=== PATIENT | female | born 1970 | race Caucasian/White ===

== ENCOUNTER 2017-11-02 14:16 | Inpatient (IN) | payer BC ==
[~2017-11-02] VITALS: Ht 156.2 cm; Wt 89.0 kg
[2017-11-02] MEDS ORDERED: SODIUM CHLORIDE 0.9% 1000ML 1,000 ML IV ONE ×2 (14:25→22:22)
[2017-11-02 14:53] LABS: BASOPHILS % (AUTO) 0.2 % (0.0-5.0); EOSINOPHILS % (AUTO) 0.1 % (0.0-8.0); LYMPHOCYTES % (AUTO) 6.1 % (21.0-51.0); MEAN CORPUSCULAR HEMOGLOBIN 26.7 pg (27.0-33.0); MEAN CORPUSCULAR HGB CONC 33.8 g/dL (32.0-36.0); MEAN CORPUSCULAR VOLUME 79.1 fL (79-99); MONOCYTES % (AUTO) 0.4 % (3.0-13.0); NEUTROPHILS % (AUTO) 93.2 % (40.0-77.0); PLATELET COUNT (AUTO) 264 K/uL (130-400); RED BLOOD CELL COUNT(AUTO) 5.18 MIL/uL (4.00-5.50); RED CELL DISTRIBUTION WIDTH 15.8 % (11.0-15.5); WHITE BLOOD COUNT (AUTO) 8.3 K/uL (4.8-10.8)
[2017-11-02] MEDS ORDERED: KETOROLAC TROMETHAMINE 30MG/ML ONE ×2 (15:00→20:13)
[2017-11-02] MEDS ORDERED: ONDANSETRON HCL MDV 20ML 2 MG/ML VIAL ONE (15:00)
[2017-11-02 15:05] LABS: INR 0.95 (0.85-1.15); PARTIAL THROMBOPLASTIN TIME 28.1 SEC (26.3-35.5)
[2017-11-02 15:09] LABS: CARBON DIOXIDE 28 mmol/L (21-32); CHLORIDE 101 mmol/L (101-111); CREATININE 0.8 mg/dL (0.5-1.5); GLOMERULAR FILTR. RATE CALC 82 mL/min (>60); GLUCOSE,RANDOM 137 mg/dL (70-105); POTASSIUM 3.4 mmol/L (3.5-5.1); SODIUM SERUM 140 mmol/L (136-145); UREA NITROGEN, BLOOD 9 mg/dL (7-18)
[2017-11-02 15:22] LABS: ALANINE AMINOTRANSFERASE 223 U/L (12-78); ALBUMIN 3.7 g/dL (3.5-5.0); ASPARTATE AMINOTRANSFERASE 118 U/L (10-37); CREATINE KINASE MB 0.5 ng/mL (0.5-3.6); CREATINE KINASE, TOTAL 63 U/L (21-232); MYOGLOBIN 41 ng/mL (10-92); TOTAL PROTEIN, SERUM 8.1 g/dL (6.0-8.3); TROPONIN I < 0.04 ng/mL (0.00-0.06)
[2017-11-02 15:27] LABS: APPEARANCE,URINE Clear (CLEAR); BILIRUBIN,URINE Negative (NEGATIVE); COLOR,URINE Dark Yellow (YELLOW); GLUCOSE, URINE (UA) Negative (NEGATIVE); KETONES,URINE Negative (NEGATIVE); LEUKOCYTE ESTERASE ,URINE Negative (NEGATIVE); NITRATE,URINE Negative (NEGATIVE); OCCULT BLOOD,URINE Negative (NEGATIVE); PH,URINE 7.5 (5.0-8.0); PROTEIN,URINE Negative (NEGATIVE)
[2017-11-02 15:35] LABS: AMPHET/METH SCREEN,URINE NEGATIVE (NEGATIVE); BARBITURATE SCREEN, URINE NEGATIVE (NEGATIVE); BENZODIAZEPINES SCREEN,URINE NEGATIVE (NEGATIVE); CANNABINOID SCREEN,URINE NEGATIVE (NEGATIVE); COCAINE SCREEN,URINE NEGATIVE (NEGATIVE); OPIATE SCREEN,URINE NEGATIVE (NEGATIVE); PHENCYCLIDINE SCREEN,URINE NEGATIVE (NEGATIVE)
[2017-11-02] MEDS ORDERED: MEROPENEM 1 GM VIAL ONE (16:30)
[2017-11-02] MEDS ORDERED: PROMETHAZINE HCL 25 MG/ML 1ML AMPULE IM ONE (17:53)
[2017-11-02] MEDS ORDERED: ACETAMINOPHEN EXTRA STRENGTH 500 MG TABLET ONE (20:47)
[2017-11-02] MEDS ORDERED: ENOXAPARIN SODIUM 30 MG/0.3 ML SQ ONE (22:23)
[2017-11-02 22:55] VITALS: BP 86/47
[2017-11-03] VITALS (23 sets, daily range): BP systolic 85–125; BP diastolic 45–69
[2017-11-03] MEDS: SODIUM CHLORIDE 0.9% 1000ML 1,000 ML IV SCH ×3 (00:40→17:45)
[2017-11-03] MEDS ORDERED: SODIUM CHLORIDE 0.9% 1000ML 1,000 ML IV SCH ×2 (00:45→01:35)
[2017-11-03 04:50] LABS: HEMATOCRIT 31.6 % (36-48); MEAN CORPUSCULAR HEMOGLOBIN 27.5 pg (27.0-33.0); MEAN CORPUSCULAR HGB CONC 34.5 g/dL (32.0-36.0); MEAN CORPUSCULAR VOLUME 79.6 fL (79-99); PLATELET COUNT (AUTO) 199 K/uL (130-400); RED BLOOD CELL COUNT(AUTO) 3.97 MIL/uL (4.00-5.50); WHITE BLOOD COUNT (AUTO) 15.1 K/uL (4.8-10.8)
[2017-11-03 05:00] LABS: CREATININE 0.8 mg/dL (0.5-1.5); POTASSIUM 3.8 mmol/L (3.5-5.1)
[2017-11-03] MEDS: ENOXAPARIN SODIUM 30 MG/0.3 ML SQ SCH ×2 (09:17→22:00)
[2017-11-03] MEDS ORDERED: FENO90CA PO (09:26)
[2017-11-03] MEDS ORDERED: CHOL500050 PO (09:26)
[2017-11-03] MEDS ORDERED: LISI2.5T2 PO (09:26)
[2017-11-03] MEDS ORDERED: LEVO1TAB60 PO (09:26)
[2017-11-03] MEDS: KETOROLAC TROMETHAMINE 30MG/ML IV PRN (11:16)
[2017-11-03] MEDS: LEVOFLOXACIN 500 MG/D5W 100 ML 100 ML IV SCH (12:01)
[2017-11-03] MEDS ORDERED: PROPOFOL 10 MG/ML 20ML VIAL IV ONE ×3 (12:29→12:53)
[2017-11-03] MEDS ORDERED: FENTANYL CITRATE PF 50 MCG/1 ML 2ML VIAL ONE (12:37)
[2017-11-03] MEDS ORDERED: ISOVUE-370 50ML VIAL IV ONE (12:41)
[2017-11-03] MEDS ORDERED: ACETAMINOPHEN 325 MG TAB ONE (17:20)
[2017-11-03] MEDS: ACETAMINOPHEN 325 MG TAB PO PRN ×2 (17:23→23:42)
[2017-11-03] MEDS: PANTOPRAZOLE SODIUM 40 MG TABLET.DR PO SCH (17:23)
[2017-11-03] MEDS: URSODIOL 300 MG CAPSULE PO SCH (22:01)
[2017-11-03] MEDS: METRONIDAZOLE 500MG/100ML BAG 100 ML IV SCH (22:01)
[2017-11-03] MEDS: ONDANSETRON HCL MDV 20ML 2 MG/ML VIAL IVP PRN (23:57)
[2017-11-04] VITALS (7 sets, daily range): BP systolic 103–129; BP diastolic 57–77
[2017-11-04 04:22] LABS: HEMATOCRIT 31.1 % (36-48); MEAN CORPUSCULAR HEMOGLOBIN 26.6 pg (27.0-33.0); MEAN CORPUSCULAR HGB CONC 33.8 g/dL (32.0-36.0); MEAN CORPUSCULAR VOLUME 78.6 fL (79-99); PLATELET COUNT (AUTO) 172 K/uL (130-400); RED BLOOD CELL COUNT(AUTO) 3.95 MIL/uL (4.00-5.50); RED CELL DISTRIBUTION WIDTH 16.2 % (11.0-15.5); WHITE BLOOD COUNT (AUTO) 7.8 K/uL (4.8-10.8)
[2017-11-04 05:06] LABS: ALBUMIN 2.2 g/dL (3.5-5.0); BILIRUBIN,DIRECT 2.7 mg/dL (0.0-0.3); CREATININE 0.7 mg/dL (0.5-1.5); MAGNESIUM 1.7 mg/dL (1.80-2.40); POTASSIUM 3.1 mmol/L (3.5-5.1); TOTAL PROTEIN, SERUM 5.8 g/dL (6.0-8.3)
[2017-11-04] MEDS ORDERED: LIDOCAINE HCL-MPF 1% 2ML VIAL IVP PRN (05:30)
[2017-11-04] MEDS ORDERED: POTASSIUM CHLORIDE 10% ELIXIR 20 MEQ/15 ML UDCUP PO PRN (05:30)
[2017-11-04] MEDS ORDERED: POTASSIUM CHLORIDE 20MEQ/100ML 100 ML IV PRN (05:30)
[2017-11-04] MEDS: METRONIDAZOLE 500MG/100ML BAG 100 ML IV SCH ×2 (06:12→13:37)
[2017-11-04] MEDS: SODIUM CHLORIDE 0.9% 1000ML 1,000 ML IV SCH ×2 (06:14→15:32)
[2017-11-04] MEDS: ONDANSETRON HCL MDV 20ML 2 MG/ML VIAL IVP PRN ×2 (08:01→18:30)
[2017-11-04] MEDS: KETOROLAC TROMETHAMINE 30MG/ML IV PRN ×2 (08:06→18:42)
[2017-11-04] MEDS: FENOFIBRATE MICRONIZED 90 MG PO SCH (09:00)
[2017-11-04 10:30] LABS: AMYLASE 33 U/L (25-115); LIPASE 79 U/L (114-286)
[2017-11-04] MEDS ORDERED: MAGNESIUM 2GM PREMIX 50ML 50 ML IV SCH (11:15)
[2017-11-04] MEDS: PANTOPRAZOLE SODIUM 40 MG TABLET.DR PO SCH (12:39)
[2017-11-04] MEDS: POTASSIUM CHLORIDE 20 MEQ ERTAB PO PRN ×3 (12:40→18:30)
[2017-11-04] MEDS: ENOXAPARIN SODIUM 30 MG/0.3 ML SQ SCH ×2 (12:47→21:50)
[2017-11-04] MEDS ORDERED: ACETAMINOPHEN 325 MG TAB PO PRN (13:45)
[2017-11-04] MEDS: URSODIOL 300 MG CAPSULE PO SCH ×2 (15:20→21:49)
[2017-11-04] MEDS: LEVOFLOXACIN 500 MG/D5W 100 ML 100 ML IV SCH (15:32)
[2017-11-04] MEDS ORDERED: CEFTRIAXONE 2GM+NS 100ML 100 ML IV SCH (16:15)
[2017-11-04] MEDS ORDERED: CEFTRIAXONE SODIUM 2 GM VIAL IVP SCH (16:30)
[2017-11-04] MEDS ORDERED: ATORVASTATIN CALCIUM 20 MG TABLET PO SCH (21:00)
[2017-11-05] MEDS: SODIUM CHLORIDE 0.9% 1000ML 1,000 ML IV SCH (02:06)
[2017-11-05 04:00] VITALS: BP 122/70
[2017-11-05 04:39] LABS: HEMATOCRIT 33.4 % (36-48); MEAN CORPUSCULAR HEMOGLOBIN 27.6 pg (27.0-33.0); MEAN CORPUSCULAR HGB CONC 34.8 g/dL (32.0-36.0); MEAN CORPUSCULAR VOLUME 79.1 fL (79-99); PLATELET COUNT (AUTO) 205 K/uL (130-400); RED BLOOD CELL COUNT(AUTO) 4.22 MIL/uL (4.00-5.50); RED CELL DISTRIBUTION WIDTH 16.2 % (11.0-15.5); WHITE BLOOD COUNT (AUTO) 5.4 K/uL (4.8-10.8)
[2017-11-05 05:12] LABS: ALBUMIN 2.4 g/dL (3.5-5.0); BILIRUBIN,DIRECT 1.7 mg/dL (0.0-0.3); CREATININE 0.6 mg/dL (0.5-1.5); POTASSIUM 3.4 mmol/L (3.5-5.1); TOTAL PROTEIN, SERUM 6.3 g/dL (6.0-8.3)
[2017-11-05 07:00] VITALS: BP 141/75
[2017-11-05] MEDS ORDERED: LISINOPRIL 2.5 MG TABLET ONE (10:42)
[2017-11-05] MEDS: PANTOPRAZOLE SODIUM 40 MG TABLET.DR PO SCH (10:43)
[2017-11-05] MEDS: URSODIOL 300 MG CAPSULE PO SCH (10:44)
[2017-11-05] MEDS: POTASSIUM CHLORIDE 20 MEQ ERTAB PO PRN (10:44)
[2017-11-05] MEDS: ENOXAPARIN SODIUM 30 MG/0.3 ML SQ SCH (10:44)
[2017-11-05] MEDS: KETOROLAC TROMETHAMINE 30MG/ML IV PRN (10:45)
[2017-11-05] MEDS: FENOFIBRATE MICRONIZED 90 MG PO SCH (10:51)
[2017-11-05 12:03] VITALS: BP 130/70
[2017-11-05] MEDS ORDERED: URSO300C4 PO (13:32)
[2017-11-05] MEDS ORDERED: ATOR20TA65 PO (13:32)
[2017-11-05] MEDS: ACETAMINOPHEN 325 MG TAB PO PRN (15:07)
[2017-11-05 15:57] VITALS: BP 129/69
[2017-11-06] MEDS ORDERED: LISINOPRIL 2.5 MG TABLET PO SCH (09:00)
== END 2017-11-05 18:05 | disposition home or self-care (01) | DRG 871 ==
LOC: EDH 14:16 → OBSVTOIN 19:30 → EDHIP 19:30 → 3DH 22:01
PROVIDERS: ADMIT Family Medicine; ATTEND Family Medicine
PROC: 0DJ08ZZ Inspection of Upper Intestinal Tract, Via Natural or Artificial Opening Endoscopic (ICD-10-PCS; principal; 2017-11-03)
PROC: 0F798DZ Dilation of Common Bile Duct with Intraluminal Device, Via Natural or Artificial Opening Endoscopic (ICD-10-PCS; 2017-11-03)
PROC: 0FF98ZZ Fragmentation in Common Bile Duct, Via Natural or Artificial Opening Endoscopic (ICD-10-PCS; 2017-11-03)
DX: A41.9 Sepsis, unspecified organism (principal); E43 Unspecified severe protein-calorie malnutrition; K76.0 Fatty (change of) liver, not elsewhere classified; E66.01 Morbid (severe) obesity due to excess calories; K80.31 Calculus of bile duct with cholangitis, unspecified, with obstruction; E83.42 Hypomagnesemia; R65.20 Severe sepsis without septic shock; E87.6 Hypokalemia; E86.0 Dehydration; K21.9 Gastro-esophageal reflux disease without esophagitis; I10 Essential (primary) hypertension; B96.20 Unspecified Escherichia coli [E. coli] as the cause of diseases classified elsewhere; B96.89 Other specified bacterial agents as the cause of diseases classified elsewhere; D50.9 Iron deficiency anemia, unspecified; K29.00 Acute gastritis without bleeding; Z68.36 Body mass index [BMI] 36.0-36.9, adult; Z90.49 Acquired absence of other specified parts of digestive tract
CPT/HCPCS: 36415; 43231; 71045; 74176; 74330; 76700; 80048; 80053; 80061; 80076; 80305; 81003; 81025; 82150; 82550; 82553; 83605; 83690; 83735; 83874; 84484; 85025; 85027; 85610; 85730; 86677; 87040; 87088; 87186; 87324; 87804; 93005; C1769; C1773; C9113; J0696; J1650; J1885; J1956; J2185; J2550; J2704; J3010; J3475; J3490; J7030; Q9967

== ENCOUNTER 2017-11-19 12:18 | Emergency (ER) | payer BC ==
[~2017-11-19 12:18] MED LIST: ATOR20TA65 PO; CHOL500050 PO; FENO90CA PO; LEVO1TAB60 PO; LISI2.5T2 PO; URSO300C4 PO
[2017-11-19] MEDS ORDERED: PREDNISONE 20 MG TABLET ONE (13:11)
[2017-11-19] MEDS ORDERED: FAMOTIDINE 20MG TAB 20 MG TAB ONE (13:11)
[2017-11-19] MEDS ORDERED: DIPHENHYDRAMINE HCL 25 MG CAPSULE ONE (13:12)
== END 2017-11-19 15:25 | disposition home or self-care (01) ==
LOC: EDH 12:18
DX: T78.49XA Other allergy, initial encounter (principal); I10 Essential (primary) hypertension; E78.5 Hyperlipidemia, unspecified; K76.0 Fatty (change of) liver, not elsewhere classified; Z90.49 Acquired absence of other specified parts of digestive tract; Z98.890 Other specified postprocedural states; X58.XXXA Exposure to other specified factors, initial encounter
CPT/HCPCS: 99284; Q0163

== ENCOUNTER 2017-12-01 08:46 | Day surgery (SDC) | payer BC ==
[~2017-12-01] VITALS: Ht 154.9 cm; Wt 82.5 kg
[~2017-12-01 08:46] MED LIST changes: -ATOR20TA65 PO; -CHOL500050 PO; +SODIUM CHLORIDE 0.9% 1000ML 1,000 ML IV ONE; -URSO300C4 PO
[2017-12-01 09:19] VITALS: BP 143/75
[2017-12-01] MEDS ORDERED: ISOVUE-370 50ML VIAL IV ONE (10:43)
[2017-12-01] MEDS ORDERED: PROPOFOL 10 MG/ML 20ML VIAL IV ONE ×3 (11:01→11:35)
[2017-12-01] MEDS ORDERED: FENTANYL CITRATE PF 50 MCG/1 ML 2ML VIAL ONE (11:01)
[2017-12-01] MEDS ORDERED: LIDOCAINE HCL 1% 20 ML VIAL ONE (11:02)
[2017-12-01 11:47] VITALS: BP 93/53
== END 2017-12-01 13:13 | disposition home or self-care (01) ==
LOC: DAH 08:46 → ENDO 08:46
PROVIDERS: ATTEND Internal Medicine Gastroenterology
DX: K80.31 Calculus of bile duct with cholangitis, unspecified, with obstruction (principal); K80.71 Calculus of gallbladder and bile duct without cholecystitis with obstruction; K21.9 Gastro-esophageal reflux disease without esophagitis; I10 Essential (primary) hypertension; E78.4 Other hyperlipidemia; Z79.899 Other long term (current) drug therapy; Z88.8 Allergy status to other drugs, medicaments and biological substances
CPT/HCPCS: 36415; 74330; 84703; A4606; C1769; C1773; C2625; J2704; J3010; J7030; Q9967